=== PATIENT | female | born 1960 | race Caucasian/White ===

== ENCOUNTER 2023-03-18 12:00 | Day surgery (SDC) | payer SELFPAY ==
[~2023-03-18 12:00] MED LIST: Cefuroxime 10 MG/ML SYRINGE EYELF SCH; Lidocaine 1% PF 2 ML SDV INJECT SCH; Pilocarpine 4% Ophth Soln 15 ML Bot EYELF SCH
[2023-03-18] MEDS: Polymyxin B/Trimethoprim 10 ML Bottle EYELF SCH ×3 (13:14→14:44)
[2023-03-18] MEDS: Brimonidine 0.2% Ophth Soln 5 ML Bottle EYELF SCH ×3 (13:19→14:44)
[2023-03-18] MEDS: Phenylephrine 2.5% Ophth Soln 2 ML Bot EYELF SCH ×5 (13:23→14:26)
[2023-03-18] MEDS: Tropicamide 1% Ophth Soln 3 ML Bottle EYELF SCH ×4 (13:30→13:51)
[2023-03-18] MEDS: Tetracaine HCl/PF 0.5% 4 ML Bottle EYEBOTH SCH ×4 (14:10→14:33)
== END 2023-03-18 14:54 ==
LOC: JD.SDS 12:00
PROVIDERS: ATTEND Ophthalmology
DX: H25.812 Combined forms of age-related cataract, left eye (principal); H35.363 Drusen (degenerative) of macula, bilateral; H35.3131 Nonexudative age-related macular degeneration, bilateral, early dry stage; H16.103 Unspecified superficial keratitis, bilateral; H16.223 Keratoconjunctivitis sicca, not specified as Sjogren's, bilateral; H02.834 Dermatochalasis of left upper eyelid; H02.831 Dermatochalasis of right upper eyelid; Z79.899 Other long term (current) drug therapy
CPT/HCPCS: 66984; A9270; J0697; V2632; 00142; J3490

== ENCOUNTER 2023-04-05 12:30 | Day surgery (SDC) | payer BC ==
[~2023-04-05 12:30] MED LIST changes: -Cefuroxime 10 MG/ML SYRINGE EYELF SCH; -Lidocaine 1% PF 2 ML SDV INJECT SCH; -Pilocarpine 4% Ophth Soln 15 ML Bot EYELF SCH; +Tetracaine HCl/PF 0.5% 4 ML Bottle EYEBOTH SCH
[2023-04-05] MEDS: Polymyxin B/Trimethoprim 10 ML Bottle EYERT SCH ×4 (13:30→15:03)
[2023-04-05] MEDS: Brimonidine 0.2% Ophth Soln 5 ML Bottle EYERT SCH ×4 (13:35→15:03)
[2023-04-05] MEDS: Phenylephrine 2.5% Ophth Soln 2 ML Bot EYERT SCH ×6 (13:41→14:46)
[2023-04-05] MEDS: Tropicamide 1% Ophth Soln 3 ML Bottle EYERT SCH ×4 (13:48→14:28)
[2023-04-05] MEDS: Proparacaine 0.5% Ophth Soln 15 ML Bottle EYEBOTH SCH ×4 (14:35→14:53)
[2023-04-05] MEDS: Cefuroxime 10 MG/ML SYRINGE EYERT SCH ×2 (14:36→15:03)
[2023-04-05] MEDS: Pilocarpine 4% Ophth Soln 15 ML Bot EYERT SCH ×2 (14:36→15:03)
[2023-04-05] MEDS: Lidocaine 1% PF 2 ML SDV INJECT SCH ×2 (14:36→14:53)
== END 2023-04-05 15:11 ==
LOC: JD.SDS 12:30
PROVIDERS: ATTEND Ophthalmology
DX: H25.811 Combined forms of age-related cataract, right eye (principal); H52.31 Anisometropia
CPT/HCPCS: 66984; A9270; J0697; 00142; J3490